=== PATIENT | male | born 1985 | race Caucasian/White ===

== ENCOUNTER 2021-09-19 11:55 | Emergency (ER) | payer OTHER ==
[~2021-09-19] VITALS: Ht 195.6 cm; Wt 129.3 kg
[2021-09-19 12:12] VITALS: BP_SYST 126
[2021-09-19 13:51] VITALS: BP_SYST 13
== END 2021-09-19 13:49 | disposition home or self-care (01) ==
LOC: SED 11:55
DX: M54.31 Sciatica, right side (principal); M79.651 Pain in right thigh; Z79.899 Other long term (current) drug therapy
CPT/HCPCS: 93971; 99284

== ENCOUNTER 2023-05-21 11:08 | Emergency (ER) | payer SELFPAY ==
[~2023-05-21] VITALS: Ht 198.1 cm; Wt 127.0 kg
[2023-05-21 11:16] VITALS: BP_SYST 147; PULSE 94; RESP 18; TEMP 97.7; O2SAT 97
[2023-05-21 12:43] VITALS: BP_SYST 126; PULSE 78; RESP 18; TEMP 98; O2SAT 97
== END 2023-05-21 12:42 | disposition home or self-care (01) ==
LOC: SED 11:08
DX: I89.8 Other specified noninfective disorders of lymphatic vessels and lymph nodes (principal)
CPT/HCPCS: 99281